=== PATIENT | female | born 1960 | race Caucasian/White ===

== ENCOUNTER 2022-06-10 11:27 | Day surgery (SDC) | payer OTHER ==
[~2022-06-10] VITALS: Ht 167.6 cm; Wt 88.0 kg
[~2022-06-10 11:27] MED LIST: ASPIRIN 81M81 MG/TA2 PO; AVONEX33 MCG IM; CARDIZEM CD 30300 MG PO; ESTRACE 1MG1 MG/TAB PO; LEVOXYL0.05 MG PO; OMEGA 31000 MG PO; TYLENOL EXTRA500 M1 PO
[2022-06-10] MEDS ORDERED: ELIQUIS 5MG PO (12:05)
[2022-06-10] MEDS ORDERED: CARDIZEM120 MG PO (12:07)
[2022-06-10] MEDS ORDERED: SYNTHROID0.05 MG/TA PO (12:08)
[2022-06-10] MEDS ORDERED: CRESTOR 10MG10 MG PO (12:08)
[2022-06-10] MEDS ORDERED: VITAMIN C500 MG PO (12:09)
[2022-06-10] MEDS ORDERED: VITAMIND3 5000 PO (12:09)
[2022-06-10] MEDS ORDERED: PHARMASSURE ZIN50 MG PO (12:10)
[2022-06-10] MEDS ORDERED: EPA FISH OIL1 SGL PO (12:11)
[2022-06-10 12:49] VITALS: BP 124/82; PULSE 70; TEMP 97.8
[2022-06-10] MEDS ORDERED: PERCOCET 325 MG1 TA2 PO (13:53)
[2022-06-10] MEDS ORDERED: FLOMAX 0.40.4 MG/CAP PO (13:53)
[2022-06-10 14:30] VITALS: BP 126/76; PULSE 65; TEMP 97
--- NOTE | 2022-06-10 14:30 | NUR ---
PT TO BAY 3 PER CART FROM PACU. REPORT RECEIVED. VS OBTAINED. CALL LIGHT WITHIN REACH. PT DENIES ANY NEEDS AT THIS TIME. WILL CONTINUE TO MONITOR.
[2022-06-10 14:45] VITALS: BP 117/64; PULSE 63
[2022-06-10 15:00] VITALS: BP 131/71; PULSE 63
[2022-06-10 15:15] VITALS: BP 128/70; PULSE 58
--- NOTE | 2022-06-10 15:15 | NUR ---
PT TOLERATING WATER AND MUFFIN. DENIES ANY OTHER NEEDS.
[2022-06-10 15:30] VITALS: BP 136/82; PULSE 66
--- NOTE | 2022-06-10 15:30 | NUR ---
PT UP TO BATHROOM AND VOIDED WITHOUT DIFFICULTY. IV TO SL AT THIS TIME.
--- NOTE | 2022-06-10 16:15 | NUR ---
1600-IV DC'D AT THIS TIME. 1605-DISCHARGE EDUCATION COMPLETED WITH PT AND HER . THEY VERBALIZED UNDERSTANDING OF HOME AND FOLLOW UP CARE. ALL QUESTIONS ANSWERED. DISCHARGE PAPERWORK GIVEN TO PT. 1615-PT OFF UNIT PER WHEELCHAIR. PT DISCHARGED TO HOME WITH PER PERSONAL VEHICLE.
== END 2022-06-10 16:15 | disposition home or self-care (01) ==
LOC: SDCO 11:27
DX: N20.0 Calculus of kidney (principal)
CPT/HCPCS: C1769; C2617; J0690; J1100; J1885; J2405; J2704; J3010; J7120